=== PATIENT | male | born 1945 | race African-American/Black ===

== ENCOUNTER 2021-05-28 09:52 | Inpatient (IN) | payer MEDICARE, OTHER ==
[~2021-05-28] VITALS: Ht 188 cm; Wt 128.4 kg
[2021-05-28] MEDS ORDERED: HYDROCODONE/ACETAMINOPHEN 5/325MG TABLET PO ONE (10:30)
[2021-05-28 10:44] LABS: CHLORIDE 107 mEq/L (98-107)
[2021-05-28 10:45] LABS: MEAN CORPUSCULAR HEMOGLOBIN 15.2 pg (28.0-32.0); MEAN CORPUSCULAR VOLUME 58.5 fL (80.0-94.0); MEAN PLATELET VOLUME 8.5 fl (7.4-10.4); PLATELET 458 x1000/uL (130-400); RED BLOOD CELL COUNT 2.44 mill/uL (4.7-6.1); RED CELL DISTRIBUTION WIDTH 20.8 % (11.6-14.6)
[2021-05-28 10:48] LABS: HEMOGLOBIN. 3.7 g/dL (14.0-18.0)
[2021-05-28 10:49] LABS: HEMATOCRIT. 14.2 % (42.0-52.0)
[2021-05-28 10:59] LABS: ETHANOL BLOOD < 10 mg/dL
[2021-05-28 11:15] LABS: NUCLEATED RED BLOOD CELLS 1 /100 WBC
[2021-05-28 11:16] LABS: PLATELET ESTIMATE INCREASED
[2021-05-28 12:35] LABS: TOTAL IRON BINDING CAPACITY 369 ug/dL (250-450)
[2021-05-28 12:50] LABS: FOLIC ACID (FOLATE) SERUM >20 ng/mL ng/mL (>5.38)
[2021-05-28 12:54] LABS: INR 1.4; PROTHROMBIN TIME 14.3 sec (9.6-11.0)
[2021-05-28 12:58] LABS: PARTIAL THROMBOPLASTIN TIME 134.1 sec (23.4-31.0)
[2021-05-28 13:01] LABS: VITAMIN B12 SERUM 562 pg/mL (211-911)
[2021-05-28] MEDS ORDERED: LORAZEPAM 0.5MG TABLET PO PRN (15:15)
[2021-05-28] MEDS ORDERED: ACETAMINOPHEN 325MG TABLET PO PRN (15:15)
[2021-05-28] MEDS ORDERED: DOCUSATE SODIUM 100MG CAPSULE PO PRN (15:15)
[2021-05-28] MEDS ORDERED: CLONIDINE 0.1MG TABLET PO PRN (15:15)
[2021-05-28] MEDS ORDERED: IPRATROPIUM/ALBUTEROL 0.5-3(2.5)MG/3ML NEB HHN PRN (15:15)
[2021-05-28] MEDS ORDERED: ONDANSETRON HCL 4MG/2ML INJ IV PRN (15:15)
[2021-05-28] MEDS ORDERED: NALOXONE HCL 0.4MG/ML VIAL IV PRN (15:30)
[2021-05-28 16:12] LABS: CREATINE KINASE MB FRACTION 2.6 ng/mL (0.5-3.6)
[2021-05-28] MEDS: IRON SUCROSE COMPLEX 100 MG/5 ML ML IV SCH (17:52)
[2021-05-28 19:58] LABS: CLARITY URINE CLEAR (CLEAR); COLOR URINE YELLOW (YELLOW); KETONES URINE NEGATIVE (NEGATIVE); LEUKOCYTE ESTERASE URINE NEGATIVE (NEGATIVE); NITRITE URINE NEGATIVE (NEGATIVE); OCCULT BLOOD URINE NEGATIVE (NEGATIVE); PROTEIN URINE NEGATIVE (NEGATIVE)
[2021-05-28 20:00] VITALS: BP 95/59
[2021-05-28 20:21] LABS: *AMPHETAMINES SCREEN URINE NEGATIVE (NEGATIVE); *BARBITURATES SCREEN URINE NEGATIVE (NEGATIVE); *BENZODIAZEPINES SCREEN URINE NEGATIVE (NEGATIVE); *COCAINE SCREEN URINE NEGATIVE (NEGATIVE); METHADONE URINE SCREEN NEGATIVE (NEGATIVE)
[2021-05-28 20:22] LABS: CANNABINOID URINE SCREEN NEGATIVE (NEGATIVE); OPIATES URINE SCREEN PRESUMTIVE POSITIVE (NEGATIVE); PHENCYCLIDINE URINE SCREEN NEGATIVE (NEGATIVE)
[2021-05-28 22:00] VITALS: BP 116/68
[2021-05-28] MEDS: HYDROCODONE/ACETAMINOPHEN 5/325MG TABLET PO PRN (22:55)
[2021-05-29] VITALS (20 sets, daily range): BP systolic 100–130; BP diastolic 51–82
[2021-05-29] MEDS: HYDROCODONE/ACETAMINOPHEN 5/325MG TABLET PO PRN ×4 (03:25→23:54)
[2021-05-29 11:19] LABS: MEAN CORPUSCULAR HEMOGLOBIN 19.5 pg (28.0-32.0); MEAN CORPUSCULAR VOLUME 66.7 fL (80.0-94.0); MEAN PLATELET VOLUME 8.7 fl (7.4-10.4); PLATELET 376 x1000/uL (130-400); RED BLOOD CELL COUNT 2.69 mill/uL (4.7-6.1); RED CELL DISTRIBUTION WIDTH 31.3 % (11.6-14.6)
[2021-05-29 11:35] LABS: T4 FREE 1.04 ng/dL (0.76-1.46)
[2021-05-29 11:40] LABS: HEMOGLOBIN. 5.3 g/dL (14.0-18.0)
[2021-05-29 11:57] LABS: NUCLEATED RED BLOOD CELLS 5 /100 WBC
[2021-05-29 11:59] LABS: PLATELET ESTIMATE NORMAL
[2021-05-29] MEDS: IRON SUCROSE COMPLEX 100 MG/5 ML ML IV SCH (16:59)
[2021-05-29 22:12] LABS: HEMOGLOBIN 6.1 g/dL (14.0-18.0)
[2021-05-29 22:13] LABS: HEMATOCRIT 19.3 % (42.0-52.0)
[2021-05-29 22:16] LABS: CHLORIDE 106 mEq/L (98-107)
[2021-05-30] VITALS (10 sets, daily range): BP systolic 103–160; BP diastolic 56–91
[2021-05-30] MEDS: HYDROCODONE/ACETAMINOPHEN 5/325MG TABLET PO PRN ×4 (05:35→23:35)
[2021-05-30 06:37] LABS: BASOPHILS % 1.2 % (0.0-2.0); EOSINOPHILS % 2.6 % (0.0-5.0); HEMATOCRIT. 23.3 % (42.0-52.0); HEMOGLOBIN. 7.2 g/dL (14.0-18.0); LYMPHOCYTES % 15.3 % (20.0-50.0); MEAN CORPUSCULAR HEMOGLOBIN 22.3 pg (28.0-32.0); MEAN CORPUSCULAR VOLUME 71.7 fL (80.0-94.0); MEAN PLATELET VOLUME 8.8 fl (7.4-10.4); MONOCYTES % 4.8 % (2.0-8.0); NEUTROPHILS % 76.1 % (40.0-76.0); PLATELET 356 x1000/uL (130-400); RED BLOOD CELL COUNT 3.25 mill/uL (4.7-6.1); RED CELL DISTRIBUTION WIDTH 33.6 % (11.6-14.6)
[2021-05-30 07:02] LABS: CHLORIDE 106 mEq/L (98-107)
[2021-05-30 07:12] LABS: CREATINE KINASE 101 IU/L (39-308)
[2021-05-30 07:13] LABS: CREATINE KINASE MB FRACTION 2.3 ng/mL (0.5-3.6)
[2021-05-30] MEDS ORDERED: MORPHINE SULFATE 2 MG/ML CPJ (NOT FOR IM USE) IV SCH (13:45)
[2021-05-30 17:41] LABS: CREATINE KINASE MB FRACTION 2.9 ng/mL (0.5-3.6)
[2021-05-31] VITALS (7 sets, daily range): BP systolic 105–137; BP diastolic 62–98
[2021-05-31 06:26] LABS: CHLORIDE 108 mEq/L (98-107)
[2021-05-31] MEDS: HYDROCODONE/ACETAMINOPHEN 5/325MG TABLET PO PRN ×3 (06:30→22:16)
[2021-05-31 06:40] LABS: BASOPHILS % 1.1 % (0.0-2.0); EOSINOPHILS % 2.8 % (0.0-5.0); HEMATOCRIT. 23.8 % (42.0-52.0); HEMOGLOBIN. 7.2 g/dL (14.0-18.0); LYMPHOCYTES % 14.4 % (20.0-50.0); MEAN CORPUSCULAR HEMOGLOBIN 22.1 pg (28.0-32.0); MEAN CORPUSCULAR VOLUME 72.7 fL (80.0-94.0); MEAN PLATELET VOLUME 9.1 fl (7.4-10.4); MONOCYTES % 7.8 % (2.0-8.0); NEUTROPHILS % 73.9 % (40.0-76.0); PLATELET 375 x1000/uL (130-400); RED BLOOD CELL COUNT 3.27 mill/uL (4.7-6.1); RED CELL DISTRIBUTION WIDTH 33.8 % (11.6-14.6)
[2021-05-31] MEDS ORDERED: MORPHINE SULFATE 2 MG/ML CPJ (NOT FOR IM USE) IV NR (15:45)
[2021-05-31] MEDS ORDERED: RIVA10TA MT (19:42)
[2021-06-01] VITALS: BP 115/77
[2021-06-01 04:00] VITALS: BP 114/80
[2021-06-01] MEDS: HYDROCODONE/ACETAMINOPHEN 5/325MG TABLET PO PRN ×2 (04:45→18:26)
[2021-06-01 06:15] LABS: HEMATOCRIT. 24.7 % (42.0-52.0); HEMOGLOBIN. 7.6 g/dL (14.0-18.0); MEAN CORPUSCULAR HEMOGLOBIN 23.2 pg (28.0-32.0); MEAN CORPUSCULAR VOLUME 75.2 fL (80.0-94.0); MEAN PLATELET VOLUME 8.8 fl (7.4-10.4); PLATELET 375 x1000/uL (130-400); RED BLOOD CELL COUNT 3.28 mill/uL (4.7-6.1); RED CELL DISTRIBUTION WIDTH 34.8 % (11.6-14.6)
[2021-06-01 06:24] LABS: CHLORIDE 109 mEq/L (98-107)
[2021-06-01 08:00] VITALS: BP 112/78
[2021-06-01 12:00] VITALS: BP 110/78
[2021-06-01 13:02] LABS: NUCLEATED RED BLOOD CELLS 5 /100 WBC; PLATELET ESTIMATE NORMAL
[2021-06-01 17:43] LABS: INR 1.1; PROTHROMBIN TIME 11.9 sec (9.6-11.0)
[2021-06-01 17:48] LABS: GAMMA GLUTAMYL TRANSPEPTIDASE 15 IU/L (11-50)
[2021-06-01 17:49] LABS: AMYLASE 30 IU/L (25-115)
[2021-06-01 17:52] LABS: TOTAL IRON BINDING CAPACITY 277 ug/dL (250-450)
[2021-06-01 17:55] LABS: CREATINE KINASE 84 IU/L (39-308)
[2021-06-01 18:11] LABS: HEMATOCRIT 25.9 % (42.0-52.0); HEMOGLOBIN 7.9 g/dL (14.0-18.0)
[2021-06-01 20:00] VITALS: BP 133/75
[2021-06-01] MEDS: PANTOPRAZOLE SODIUM 40 MG/VIAL IV SCH (21:53)
[2021-06-02] VITALS: BP 116/70
[2021-06-02 00:31] LABS: HEMATOCRIT 24.9 % (42.0-52.0); HEMOGLOBIN 7.8 g/dL (14.0-18.0)
[2021-06-02] MEDS: HYDROCODONE/ACETAMINOPHEN 5/325MG TABLET PO PRN (03:40)
[2021-06-02 04:00] VITALS: BP 133/67
[2021-06-02] MEDS ORDERED: NA PHOS,M-B/NA PHOS,DI-BA ENEMA 118ML PR NR (07:00)
[2021-06-02 08:00] VITALS: BP 123/66
[2021-06-02 09:22] LABS: HEMATOCRIT. 26.7 % (42.0-52.0); MEAN CORPUSCULAR HEMOGLOBIN 22.6 pg (28.0-32.0); MEAN CORPUSCULAR VOLUME 75.8 fL (80.0-94.0); MEAN PLATELET VOLUME 8.6 fl (7.4-10.4); PLATELET 405 x1000/uL (130-400); RED BLOOD CELL COUNT 3.52 mill/uL (4.7-6.1); RED CELL DISTRIBUTION WIDTH 37.1 % (11.6-14.6)
[2021-06-02 09:32] LABS: INR 1.1; PROTHROMBIN TIME 11.6 sec (9.6-11.0)
[2021-06-02] MEDS: PANTOPRAZOLE SODIUM 40 MG/VIAL IV SCH ×2 (09:39→20:15)
[2021-06-02 09:40] LABS: CHLORIDE 109 mEq/L (98-107)
[2021-06-02 12:00] VITALS: BP 118/66
[2021-06-02] MEDS ORDERED: PROPOFOL 200MG/20ML VIAL IV ONE (13:00)
[2021-06-02] MEDS ORDERED: MIDAZOLAM HCL 2 MG/2 ML VIAL ONE (13:00)
[2021-06-02] MEDS ORDERED: FENTANYL CITRATE/PF 50MCG/ML 2ML VIAL ONE (13:00)
[2021-06-02] MEDS ORDERED: ONDANSETRON HCL 4MG/2ML INJ ONE (13:01)
[2021-06-02] MEDS ORDERED: LIDOCAINE HCL 1% 20ML VIAL (Pyxis) INJ ONE (13:01)
[2021-06-02] MEDS ORDERED: DEXAMETHASONE 4MG/ML 1ML VIAL ONE (13:01)
[2021-06-02 13:55] LABS: NUCLEATED RED BLOOD CELLS 1 /100 WBC; PLATELET ESTIMATE SLIGHTLY INCREASED
[2021-06-02 16:00] VITALS: BP 113/77
[2021-06-02] MEDS: BISACODYL 5MG TABLET PO SCH ×3 (17:45→23:51)
[2021-06-02] MEDS: METOCLOPRAMIDE HCL 10MG/2ML VIAL IV SCH ×3 (17:45→23:51)
[2021-06-02] MEDS: SORBITOL 70% SOLN 30ML PO SCH ×2 (17:45→20:15)
[2021-06-02 20:00] VITALS: BP 114/64
[2021-06-02] MEDS: ACETAMINOPHEN 325MG TABLET PO PRN (23:52)
[2021-06-03] VITALS: BP 108/76
[2021-06-03] MEDS: SORBITOL 70% SOLN 30ML PO SCH ×2 (00:27→04:36)
[2021-06-03 04:00] VITALS: BP 105/70
[2021-06-03] MEDS: BISACODYL 5MG TABLET PO SCH (04:05)
[2021-06-03] MEDS: METOCLOPRAMIDE HCL 10MG/2ML VIAL IV SCH (04:05)
[2021-06-03 05:38] LABS: HEMATOCRIT. 26.7 % (42.0-52.0); HEMOGLOBIN. 7.9 g/dL (14.0-18.0); MEAN CORPUSCULAR HEMOGLOBIN 22.6 pg (28.0-32.0); MEAN CORPUSCULAR VOLUME 76.5 fL (80.0-94.0); MEAN PLATELET VOLUME 8.5 fl (7.4-10.4); PLATELET 425 x1000/uL (130-400); RED BLOOD CELL COUNT 3.49 mill/uL (4.7-6.1); RED CELL DISTRIBUTION WIDTH 36.4 % (11.6-14.6)
[2021-06-03 05:54] LABS: CHLORIDE 110 mEq/L (98-107)
[2021-06-03] MEDS: ACETAMINOPHEN 325MG TABLET PO PRN (06:30)
[2021-06-03] MEDS ORDERED: NA PHOS,M-B/NA PHOS,DI-BA ENEMA 118ML PR NR (07:00)
[2021-06-03 07:05] LABS: INR 1.1; PROTHROMBIN TIME 11.4 sec (9.6-11.0)
[2021-06-03 07:33] LABS: PARTIAL THROMBOPLASTIN TIME 94.6 sec (23.4-31.0)
[2021-06-03 08:00] VITALS: BP 115/72
[2021-06-03] MEDS: PANTOPRAZOLE SODIUM 40 MG/VIAL IV SCH ×2 (08:40→20:30)
[2021-06-03 10:13] LABS: NUCLEATED RED BLOOD CELLS 1 /100 WBC; PLATELET ESTIMATE SLIGHTLY INCREASED
[2021-06-03] MEDS ORDERED: PROPOFOL 200MG/20ML VIAL IV ONE (10:44)
[2021-06-03] MEDS ORDERED: FENTANYL CITRATE/PF 50MCG/ML 2ML VIAL ONE (10:45)
[2021-06-03] MEDS ORDERED: MIDAZOLAM HCL 2 MG/2 ML VIAL ONE (10:45)
[2021-06-03] MEDS ORDERED: LIDOCAINE HCL 1% 20ML VIAL (Pyxis) INJ ONE (10:53)
[2021-06-03] MEDS ORDERED: DEXAMETHASONE 4MG/ML 1ML VIAL ONE (10:53)
[2021-06-03] MEDS ORDERED: ONDANSETRON HCL 4MG/2ML INJ ONE (10:53)
[2021-06-03 12:00] VITALS: BP 100/56
[2021-06-03] MEDS ORDERED: IRON SUCROSE COMPLEX 100 MG/5 ML ML IV SCH (12:00)
[2021-06-03] MEDS ORDERED: BARIUM SULFATE(VOLUMEN) 450 ML ORAL.SUSP ONE (15:21)
[2021-06-03 16:00] VITALS: BP 106/62
[2021-06-03 20:00] VITALS: BP 131/46
[2021-06-03] MEDS ORDERED: IOHEXOL-350 100 ML BOTTLE ONE (21:35)
[2021-06-04] VITALS: BP 93/64
[2021-06-04] MEDS: ACETAMINOPHEN 325MG TABLET PO PRN ×2 (03:05→17:06)
[2021-06-04 04:00] VITALS: BP 112/62
[2021-06-04 07:08] LABS: HEMATOCRIT. 24.3 % (42.0-52.0); HEMOGLOBIN. 7.4 g/dL (14.0-18.0); MEAN CORPUSCULAR VOLUME 75.7 fL (80.0-94.0); MEAN PLATELET VOLUME 8.6 fl (7.4-10.4); PLATELET 400 x1000/uL (130-400); RED BLOOD CELL COUNT 3.22 mill/uL (4.7-6.1)
[2021-06-04 07:56] LABS: CHLORIDE 107 mEq/L (98-107)
[2021-06-04 08:00] VITALS: BP 110/60
[2021-06-04] MEDS: PANTOPRAZOLE SODIUM 40 MG/VIAL IV SCH ×2 (09:21→22:18)
[2021-06-04 11:15] LABS: NUCLEATED RED BLOOD CELLS 1 /100 WBC; PLATELET ESTIMATE NORMAL
[2021-06-04] MEDS ORDERED: ENOXAPARIN 120MG/0.8ML SYR SUBCUT SCH (11:30)
[2021-06-04] MEDS: HYDROCODONE/ACETAMINOPHEN 5/325MG TABLET PO PRN ×2 (11:57→18:03)
[2021-06-04 12:00] VITALS: BP 115/54
[2021-06-04 16:00] VITALS: BP 123/59
[2021-06-04] MEDS ORDERED: NALOXONE HCL 0.4MG/ML VIAL IV PRN (17:45)
[2021-06-04] MEDS: METHYLPREDNISOLONE SOD SUCC 40 MG/ML VIAL IV SCH (18:02)
[2021-06-04 20:00] VITALS: BP 102/59
[2021-06-05] VITALS (9 sets, daily range): BP systolic 122–145; BP diastolic 55–81
[2021-06-05] MEDS: HYDROCODONE/ACETAMINOPHEN 5/325MG TABLET PO PRN ×3 (00:35→20:45)
[2021-06-05] MEDS: FERROUS SULFATE 325MG TABLET PO SCH ×4 (00:36→17:25)
[2021-06-05] MEDS: METHYLPREDNISOLONE SOD SUCC 40 MG/ML VIAL IV SCH ×5 (00:36→23:11)
[2021-06-05] MEDS: ASCORBIC ACID 500 MG TABLET PO SCH ×3 (00:36→20:45)
[2021-06-05] MEDS: PANTOPRAZOLE SODIUM 40 MG/VIAL IV SCH ×2 (09:37→20:45)
[2021-06-05] MEDS: LACTULOSE 20G/30ML UDC PO SCH (21:15)
[2021-06-06] VITALS: BP 144/83
[2021-06-06] MEDS: HYDROCODONE/ACETAMINOPHEN 5/325MG TABLET PO PRN ×3 (03:33→21:44)
[2021-06-06] MEDS: ACETAMINOPHEN 325MG TABLET PO PRN ×2 (03:38→20:29)
[2021-06-06 04:00] VITALS: BP 140/80
[2021-06-06] MEDS: METHYLPREDNISOLONE SOD SUCC 40 MG/ML VIAL IV SCH ×4 (05:06→23:38)
[2021-06-06 07:18] LABS: CHLORIDE 109 mEq/L (98-107)
[2021-06-06 08:22] LABS: HEMATOCRIT. 27.9 % (42.0-52.0); HEMOGLOBIN. 8.5 g/dL (14.0-18.0); MEAN CORPUSCULAR HEMOGLOBIN 24.1 pg (28.0-32.0); MEAN PLATELET VOLUME 8.8 fl (7.4-10.4); PLATELET 414 x1000/uL (130-400); RED BLOOD CELL COUNT 3.53 mill/uL (4.7-6.1); RED CELL DISTRIBUTION WIDTH 34.8 % (11.6-14.6)
[2021-06-06] MEDS: FERROUS SULFATE 325MG TABLET PO SCH ×3 (08:46→17:19)
[2021-06-06] MEDS: PANTOPRAZOLE SODIUM 40 MG/VIAL IV SCH ×2 (08:46→20:28)
[2021-06-06] MEDS: ASCORBIC ACID 500 MG TABLET PO SCH ×2 (08:46→20:28)
[2021-06-06] MEDS ORDERED: SODIUM POLYSTYRENE SULFONATE 15 G/60 ML BOT PO NR (10:30)
[2021-06-06 16:00] VITALS: BP 130/77
[2021-06-06 17:26] LABS: PLATELET ESTIMATE SLIGHTLY INCREASED
[2021-06-06 20:00] VITALS: BP 139/70
[2021-06-06] MEDS: LACTULOSE 20G/30ML UDC PO SCH (20:28)
[2021-06-07] MEDS: HYDROCODONE/ACETAMINOPHEN 5/325MG TABLET PO PRN ×3 (03:50→18:56)
[2021-06-07 04:00] VITALS: BP 133/75
[2021-06-07 05:23] LABS: CHLORIDE 108 mEq/L (98-107)
[2021-06-07] MEDS: METHYLPREDNISOLONE SOD SUCC 40 MG/ML VIAL IV SCH ×3 (05:34→18:53)
[2021-06-07 06:42] LABS: HEMATOCRIT. 25.8 % (42.0-52.0); HEMOGLOBIN. 7.6 g/dL (14.0-18.0); MEAN CORPUSCULAR HEMOGLOBIN 24.1 pg (28.0-32.0); MEAN CORPUSCULAR VOLUME 81.9 fL (80.0-94.0); MEAN PLATELET VOLUME 8.9 fl (7.4-10.4); PLATELET 426 x1000/uL (130-400); RED BLOOD CELL COUNT 3.15 mill/uL (4.7-6.1); RED CELL DISTRIBUTION WIDTH 35.3 % (11.6-14.6)
[2021-06-07 08:00] VITALS: BP 119/74
[2021-06-07] MEDS: PANTOPRAZOLE SODIUM 40 MG/VIAL IV SCH ×2 (08:47→22:11)
[2021-06-07] MEDS: ASCORBIC ACID 500 MG TABLET PO SCH ×2 (08:47→22:11)
[2021-06-07] MEDS: FERROUS SULFATE 325MG TABLET PO SCH ×3 (08:47→18:53)
[2021-06-07] MEDS ORDERED: ALPRAZOLAM 0.25 MG TABLET PO NR (11:30)
[2021-06-07 12:00] VITALS: BP 119/82
[2021-06-07 16:00] VITALS: BP 122/80
[2021-06-07] MEDS: MORPHINE SULFATE 2 MG/ML CPJ (NOT FOR IM USE) IV PRN (16:27)
[2021-06-07 17:32] LABS: PLATELET ESTIMATE SLIGHTLY INCREASED
[2021-06-07 20:00] VITALS: BP 101/63
[2021-06-07] MEDS: LACTULOSE 20G/30ML UDC PO SCH (21:00)
[2021-06-08] VITALS (14 sets, daily range): BP systolic 116–145; BP diastolic 53–84
[2021-06-08] MEDS: METHYLPREDNISOLONE SOD SUCC 40 MG/ML VIAL IV SCH ×5 (00:10→23:49)
[2021-06-08] MEDS: MORPHINE SULFATE 2 MG/ML CPJ (NOT FOR IM USE) IV PRN ×2 (00:13→17:39)
[2021-06-08] MEDS: HYDROCODONE/ACETAMINOPHEN 5/325MG TABLET PO PRN (05:14)
[2021-06-08 05:51] LABS: CHLORIDE 108 mEq/L (98-107)
[2021-06-08 06:27] LABS: HEMATOCRIT. 21.7 % (42.0-52.0); MEAN PLATELET VOLUME 9.1 fl (7.4-10.4); PLATELET 394 x1000/uL (130-400); RED BLOOD CELL COUNT 2.61 mill/uL (4.7-6.1); RED CELL DISTRIBUTION WIDTH 35.3 % (11.6-14.6)
[2021-06-08 06:43] LABS: HEMOGLOBIN. 6.2 g/dL (14.0-18.0)
[2021-06-08] MEDS ORDERED: MORPHINE SULFATE 2 MG/ML CPJ (NOT FOR IM USE) IV SCH (06:45)
[2021-06-08] MEDS: ASCORBIC ACID 500 MG TABLET PO SCH ×2 (08:31→22:05)
[2021-06-08] MEDS: PANTOPRAZOLE SODIUM 40 MG/VIAL IV SCH ×2 (08:31→22:06)
[2021-06-08] MEDS: FERROUS SULFATE 325MG TABLET PO SCH ×3 (08:31→17:39)
[2021-06-08] MEDS: DOCUSATE SODIUM 100MG CAPSULE PO SCH ×2 (10:30→17:39)
[2021-06-08 17:58] LABS: NUCLEATED RED BLOOD CELLS 2 /100 WBC; PLATELET ESTIMATE NORMAL
[2021-06-08 18:43] LABS: INR 1.1; PROTHROMBIN TIME 11.5 sec (9.6-11.0)
[2021-06-08 19:03] LABS: HEMOGLOBIN 6.4 g/dL (14.0-18.0)
[2021-06-08 19:04] LABS: HEMATOCRIT 21.2 % (42.0-52.0)
[2021-06-08] MEDS: LACTULOSE 20G/30ML UDC PO SCH (21:00)
[2021-06-09] VITALS (11 sets, daily range): BP systolic 119–147; BP diastolic 53–93
[2021-06-09] MEDS: MORPHINE SULFATE 2 MG/ML CPJ (NOT FOR IM USE) IV PRN ×3 (01:41→21:43)
[2021-06-09 05:14] LABS: MEAN CORPUSCULAR HEMOGLOBIN 25.7 pg (28.0-32.0); MEAN PLATELET VOLUME 9.1 fl (7.4-10.4); PLATELET 390 x1000/uL (130-400); RED BLOOD CELL COUNT 2.65 mill/uL (4.7-6.1); RED CELL DISTRIBUTION WIDTH 28.3 % (11.6-14.6)
[2021-06-09 05:20] LABS: CHLORIDE 106 mEq/L (98-107)
[2021-06-09] MEDS: METHYLPREDNISOLONE SOD SUCC 40 MG/ML VIAL IV SCH ×3 (06:31→18:48)
[2021-06-09 06:39] LABS: HEMOGLOBIN. 6.8 g/dL (14.0-18.0)
[2021-06-09 06:40] LABS: HEMATOCRIT. 22.3 % (42.0-52.0)
[2021-06-09] MEDS ORDERED: NALOXONE HCL 0.4 MG/ML 1ML VIAL IV PRN (08:00)
[2021-06-09] MEDS: PANTOPRAZOLE SODIUM 40 MG/VIAL IV SCH ×2 (08:35→21:44)
[2021-06-09] MEDS: FERROUS SULFATE 325MG TABLET PO SCH ×3 (08:36→18:49)
[2021-06-09] MEDS: DOCUSATE SODIUM 100MG CAPSULE PO SCH ×2 (08:36→18:49)
[2021-06-09] MEDS: ASCORBIC ACID 500 MG TABLET PO SCH ×2 (08:36→21:44)
[2021-06-09] MEDS: HYDROCODONE/ACETAMINOPHEN 10/325MG TABLET PO PRN (10:42)
[2021-06-09] MEDS ORDERED: METHYLPREDNISOLONE SOD SUCC 40 MG/ML VIAL ONE (12:57)
[2021-06-09 20:15] LABS: HEMATOCRIT 22.8 % (42.0-52.0); HEMOGLOBIN 7.2 g/dL (14.0-18.0)
[2021-06-09 20:36] LABS: PLATELET ESTIMATE NORMAL
[2021-06-09] MEDS: LACTULOSE 20G/30ML UDC PO SCH (21:44)
[2021-06-09] MEDS ORDERED: FUROSEMIDE 20MG/2ML VIAL IVP SCH (23:15)
[2021-06-10] VITALS (14 sets, daily range): BP systolic 108–138; BP diastolic 63–86
[2021-06-10] MEDS: HYDROCODONE/ACETAMINOPHEN 10/325MG TABLET PO PRN ×2 (00:45→16:28)
[2021-06-10] MEDS: METHYLPREDNISOLONE SOD SUCC 40 MG/ML VIAL IV SCH ×4 (00:54→17:52)
[2021-06-10 06:16] LABS: CHLORIDE 106 mEq/L (98-107)
[2021-06-10 06:43] LABS: HEMATOCRIT. 22.1 % (42.0-52.0); MEAN CORPUSCULAR HEMOGLOBIN 25.8 pg (28.0-32.0); MEAN CORPUSCULAR VOLUME 85.2 fL (80.0-94.0); MEAN PLATELET VOLUME 9.4 fl (7.4-10.4); PLATELET 289 x1000/uL (130-400); RED BLOOD CELL COUNT 2.59 mill/uL (4.7-6.1)
[2021-06-10 06:45] LABS: INR 1.2; PROTHROMBIN TIME 12.4 sec (9.6-11.0)
[2021-06-10 07:29] LABS: PARTIAL THROMBOPLASTIN TIME 99.5 sec (23.4-31.0)
[2021-06-10] MEDS: FERROUS SULFATE 325MG TABLET PO SCH ×3 (08:07→17:58)
[2021-06-10] MEDS: PANTOPRAZOLE SODIUM 40 MG/VIAL IV SCH ×2 (08:07→21:14)
[2021-06-10] MEDS: DOCUSATE SODIUM 100MG CAPSULE PO SCH ×2 (08:07→17:52)
[2021-06-10] MEDS: ASCORBIC ACID 500 MG TABLET PO SCH ×2 (08:07→21:14)
[2021-06-10 08:09] LABS: HEMOGLOBIN. 6.7 g/dL (14.0-18.0)
[2021-06-10] MEDS: MORPHINE SULFATE 2 MG/ML CPJ (NOT FOR IM USE) IV PRN (08:12)
[2021-06-10 09:06] LABS: ANTI-DNA DOUBLE STRANDED QUANT < 1 IU/mL (0-9)
[2021-06-10] MEDS: PREGABALIN 25MG CAPSULE PO SCH ×2 (12:09→21:14)
[2021-06-10 12:24] LABS: NUCLEATED RED BLOOD CELLS 4 /100 WBC; PLATELET ESTIMATE NORMAL
[2021-06-10] MEDS: LACTULOSE 20G/30ML UDC PO SCH (21:14)
[2021-06-11] VITALS (10 sets, daily range): BP systolic 135–148; BP diastolic 60–98
[2021-06-11] MEDS: METHYLPREDNISOLONE SOD SUCC 40 MG/ML VIAL IV SCH ×5 (00:29→23:52)
[2021-06-11] MEDS: MORPHINE SULFATE 2 MG/ML CPJ (NOT FOR IM USE) IV PRN ×4 (01:05→23:56)
[2021-06-11 05:45] LABS: CHLORIDE 106 mEq/L (98-107)
[2021-06-11 06:05] LABS: HEMATOCRIT 23.7 % (42.0-52.0); HEMOGLOBIN 7.4 g/dL (14.0-18.0)
[2021-06-11] MEDS: DOCUSATE SODIUM 100MG CAPSULE PO SCH ×2 (09:24→18:25)
[2021-06-11] MEDS: FERROUS SULFATE 325MG TABLET PO SCH ×3 (09:24→18:25)
[2021-06-11] MEDS: ASCORBIC ACID 500 MG TABLET PO SCH ×2 (09:25→20:47)
[2021-06-11] MEDS: PREGABALIN 25MG CAPSULE PO SCH ×2 (09:25→20:47)
[2021-06-11] MEDS: PANTOPRAZOLE SODIUM 40 MG/VIAL IV SCH ×2 (09:25→20:48)
[2021-06-11] MEDS ORDERED: IOHEXOL-300 100 ML BOTTLE ONE (11:12)
[2021-06-11] MEDS ORDERED: BISACODYL 5MG TABLET PO PRN (12:15)
[2021-06-11 13:07] LABS: ACTIN (SMOOTH MUSCLE) ANTIBODY 7 Units (0-19); ANTI-CARDIOLIPIN AB IGG < 9 GPL U/mL (0-14); ANTI-CARDIOLIPIN AB IGM < 9 MPL U/mL (0-12); ANTI-MYELOPEROXIDASE AB < 9.0 U/mL (0.0-9.0); ANTI-PROTEINASE 3 ABS < 3.5 U/mL (0.0-3.5); ATYPICAL P-ANCA <1:20 titer (Neg:<1:20); CYTOPLASMIC C-ANCA <1:20 titer (Neg:<1:20); PERINUCLEAR P-ANCA <1:20 titer (Neg:<1:20)
[2021-06-11] MEDS ORDERED: MAGNESIUM CITRATE 300ML SOLUTION PO NR (13:30)
[2021-06-11 14:10] LABS: ALDOLASE 6.3 U/L (3.3-10.3); ANGIOTENSION CONVERTING ENZYME 30 U/L (14-82)
[2021-06-11 16:47] LABS: HEMATOCRIT 21.4 % (42.0-52.0)
[2021-06-11 16:58] LABS: HEMOGLOBIN 6.4 g/dL (14.0-18.0)
[2021-06-11] MEDS: LACTULOSE 20G/30ML UDC PO SCH (20:47)
[2021-06-12] VITALS (27 sets, daily range): BP systolic 121–154; BP diastolic 45–78
[2021-06-12 01:03] LABS: HEMOGLOBIN 6.2 g/dL (14.0-18.0)
[2021-06-12 01:04] LABS: HEMATOCRIT 20.9 % (42.0-52.0)
[2021-06-12] MEDS: METHYLPREDNISOLONE SOD SUCC 40 MG/ML VIAL IV SCH ×4 (05:49→23:22)
[2021-06-12] MEDS: DOCUSATE SODIUM 100MG CAPSULE PO SCH ×2 (08:57→17:01)
[2021-06-12] MEDS: PANTOPRAZOLE SODIUM 40 MG/VIAL IV SCH ×2 (08:57→21:00)
[2021-06-12] MEDS: PREGABALIN 25MG CAPSULE PO SCH ×2 (08:57→20:55)
[2021-06-12] MEDS: ASCORBIC ACID 500 MG TABLET PO SCH ×2 (08:57→20:55)
[2021-06-12] MEDS: FERROUS SULFATE 325MG TABLET PO SCH ×3 (08:59→17:01)
[2021-06-12] MEDS: MORPHINE SULFATE 2 MG/ML CPJ (NOT FOR IM USE) IV PRN ×2 (09:00→21:08)
[2021-06-12 09:09] LABS: IMMUNOGLOBULIN A 162 mg/dL (61-437); IMMUNOGLOBULIN G 910 mg/dL (603-1613); IMMUNOGLOBULIN M 32 mg/dL (15-143)
[2021-06-12 19:59] LABS: HEMATOCRIT 22.6 % (42.0-52.0); HEMOGLOBIN 7.1 g/dL (14.0-18.0); MEAN CORPUSCULAR HEMOGLOBIN 27.7 pg (28.0-32.0); MEAN CORPUSCULAR VOLUME 87.7 fL (80.0-94.0); PLATELET 266 x1000/uL (130-400); RED BLOOD CELL COUNT 2.58 mill/uL (4.7-6.1); RED CELL DISTRIBUTION WIDTH 16.5 % (11.6-14.6)
[2021-06-12 20:09] LABS: CHLORIDE 107 mEq/L (98-107)
[2021-06-12 20:17] LABS: INR 1.1; PROTHROMBIN TIME 11.8 sec (9.6-11.0)
[2021-06-12] MEDS: LACTULOSE 20G/30ML UDC PO SCH (20:54)
[2021-06-13] VITALS (17 sets, daily range): BP systolic 116–160; BP diastolic 32–87
[2021-06-13] MEDS: MORPHINE SULFATE 2 MG/ML CPJ (NOT FOR IM USE) IV PRN ×3 (01:14→23:17)
[2021-06-13] MEDS: METHYLPREDNISOLONE SOD SUCC 40 MG/ML VIAL IV SCH ×4 (05:12→23:14)
[2021-06-13 08:10] LABS: HEMOGLOBIN 7.1 g/dL (14.0-18.0)
[2021-06-13 08:13] LABS: CHLORIDE 107 mEq/L (98-107)
[2021-06-13] MEDS: ASCORBIC ACID 500 MG TABLET PO SCH ×2 (08:27→20:36)
[2021-06-13] MEDS: PREGABALIN 25MG CAPSULE PO SCH ×2 (08:27→20:37)
[2021-06-13] MEDS: PANTOPRAZOLE SODIUM 40 MG/VIAL IV SCH ×2 (08:28→20:37)
[2021-06-13] MEDS: DOCUSATE SODIUM 100MG CAPSULE PO SCH ×2 (08:28→17:41)
[2021-06-13] MEDS: FERROUS SULFATE 325MG TABLET PO SCH ×3 (08:28→17:41)
[2021-06-13] MEDS: TRAMADOL 50MG TABLET PO PRN ×2 (11:48→17:42)
[2021-06-13] MEDS ORDERED: TRAMADOL 50MG TABLET PO PRN (18:45)
[2021-06-13 19:23] LABS: HEMATOCRIT 21.1 % (42.0-52.0); HEMOGLOBIN 6.6 g/dL (14.0-18.0)
[2021-06-13] MEDS: LACTULOSE 20G/30ML UDC PO SCH (20:37)
[2021-06-14] VITALS (12 sets, daily range): BP systolic 109–156; BP diastolic 56–68
[2021-06-14] MEDS: METHYLPREDNISOLONE SOD SUCC 40 MG/ML VIAL IV SCH ×3 (05:56→17:54)
[2021-06-14 06:13] LABS: HEMATOCRIT. 23.9 % (42.0-52.0); HEMOGLOBIN. 7.7 g/dL (14.0-18.0); MEAN CORPUSCULAR HEMOGLOBIN 28.8 pg (28.0-32.0); MEAN CORPUSCULAR VOLUME 89.7 fL (80.0-94.0); MEAN PLATELET VOLUME 9.3 fl (7.4-10.4); PLATELET 219 x1000/uL (130-400); RED BLOOD CELL COUNT 2.66 mill/uL (4.7-6.1); RED CELL DISTRIBUTION WIDTH 16.6 % (11.6-14.6)
[2021-06-14 06:59] LABS: CHLORIDE 106 mEq/L (98-107)
[2021-06-14] MEDS: FERROUS SULFATE 325MG TABLET PO SCH ×3 (10:31→17:54)
[2021-06-14] MEDS: PANTOPRAZOLE SODIUM 40 MG/VIAL IV SCH ×2 (10:31→22:53)
[2021-06-14] MEDS: ASCORBIC ACID 500 MG TABLET PO SCH ×2 (10:31→22:52)
[2021-06-14] MEDS: DOCUSATE SODIUM 100MG CAPSULE PO SCH ×2 (10:31→17:53)
[2021-06-14] MEDS: PREGABALIN 25MG CAPSULE PO SCH ×2 (10:32→22:52)
[2021-06-14] MEDS: MORPHINE SULFATE 2 MG/ML CPJ (NOT FOR IM USE) IV PRN ×3 (10:32→23:38)
[2021-06-14] MEDS: LACTULOSE 20G/30ML UDC PO SCH (22:52)
[2021-06-15] VITALS (12 sets, daily range): BP systolic 96–135; BP diastolic 54–79
[2021-06-15] MEDS: METHYLPREDNISOLONE SOD SUCC 40 MG/ML VIAL IV SCH ×4 (00:34→18:14)
[2021-06-15] MEDS: MORPHINE SULFATE 2 MG/ML CPJ (NOT FOR IM USE) IV PRN ×3 (03:47→18:26)
[2021-06-15 05:20] LABS: CHLORIDE 105 mEq/L (98-107)
[2021-06-15 06:27] LABS: HEMATOCRIT. 24.1 % (42.0-52.0); HEMOGLOBIN. 7.6 g/dL (14.0-18.0); MEAN CORPUSCULAR HEMOGLOBIN 28.4 pg (28.0-32.0); MEAN CORPUSCULAR VOLUME 90.2 fL (80.0-94.0); MEAN PLATELET VOLUME 9.2 fl (7.4-10.4); PLATELET 241 x1000/uL (130-400); RED BLOOD CELL COUNT 2.67 mill/uL (4.7-6.1); RED CELL DISTRIBUTION WIDTH 17.1 % (11.6-14.6)
[2021-06-15 09:11] LABS: DRVVT LA 34.9 sec (0.0-47.0); PTT-LA 102.3 sec (0.0-51.9)
[2021-06-15] MEDS: DOCUSATE SODIUM 100MG CAPSULE PO SCH ×2 (09:15→18:14)
[2021-06-15] MEDS: ASCORBIC ACID 500 MG TABLET PO SCH ×2 (09:15→21:30)
[2021-06-15] MEDS: PANTOPRAZOLE SODIUM 40 MG/VIAL IV SCH ×2 (09:15→21:29)
[2021-06-15] MEDS: PREGABALIN 25MG CAPSULE PO SCH ×2 (09:15→21:30)
[2021-06-15] MEDS: FERROUS SULFATE 325MG TABLET PO SCH ×3 (09:16→18:14)
[2021-06-15 15:07] LABS: NUCLEATED RED BLOOD CELLS 5 /100 WBC
[2021-06-15 15:08] LABS: PLATELET ESTIMATE NORMAL
[2021-06-15] MEDS: LACTULOSE 20G/30ML UDC PO SCH (21:30)
[2021-06-16] VITALS (12 sets, daily range): BP systolic 90–125; BP diastolic 52–76
[2021-06-16] MEDS: METHYLPREDNISOLONE SOD SUCC 40 MG/ML VIAL IV SCH ×4 (00:56→17:42)
[2021-06-16] MEDS: MORPHINE SULFATE 2 MG/ML CPJ (NOT FOR IM USE) IV PRN ×2 (02:20→15:50)
[2021-06-16 05:29] LABS: CHLORIDE 106 mEq/L (98-107)
[2021-06-16 06:09] LABS: HEXAGONAL PHASE PHOSPHOLIPID 12 sec (0-11); LUPUS ANTICOAG INTERPRETATION Comment: (.)
[2021-06-16 07:17] LABS: PLATELET ESTIMATE NORMAL
[2021-06-16] MEDS: FERROUS SULFATE 325MG TABLET PO SCH ×3 (08:20→17:43)
[2021-06-16] MEDS: ASCORBIC ACID 500 MG TABLET PO SCH ×2 (08:20→20:40)
[2021-06-16] MEDS: PANTOPRAZOLE SODIUM 40 MG/VIAL IV SCH ×2 (08:20→20:40)
[2021-06-16] MEDS: DOCUSATE SODIUM 100MG CAPSULE PO SCH ×2 (08:21→17:00)
[2021-06-16] MEDS: PREGABALIN 25MG CAPSULE PO SCH ×2 (08:21→20:40)
[2021-06-16] MEDS ORDERED: NA PHOS,M-B/NA PHOS,DI-BA ENEMA 118ML PR SCH (13:45)
[2021-06-16 14:17] LABS: HEMATOCRIT. 23.5 % (42.0-52.0); HEMOGLOBIN. 7.1 g/dL (14.0-18.0); MEAN CORPUSCULAR HEMOGLOBIN 28.3 pg (28.0-32.0); MEAN PLATELET VOLUME 9.9 fl (7.4-10.4); PLATELET 269 x1000/uL (130-400); RED BLOOD CELL COUNT 2.53 mill/uL (4.7-6.1); RED CELL DISTRIBUTION WIDTH 18.7 % (11.6-14.6)
[2021-06-16 17:03] LABS: NUCLEATED RED BLOOD CELLS 1 /100 WBC; PLATELET ESTIMATE NORMAL
[2021-06-16] MEDS: LACTULOSE 20G/30ML UDC PO SCH (20:40)
[2021-06-17] VITALS (55 sets, daily range): BP systolic 0–174; BP diastolic 0–88
[2021-06-17] MEDS: METHYLPREDNISOLONE SOD SUCC 40 MG/ML VIAL IV SCH ×5 (00:13→23:14)
[2021-06-17] MEDS: MORPHINE SULFATE 2 MG/ML CPJ (NOT FOR IM USE) IV PRN (01:08)
[2021-06-17] MEDS: FERROUS SULFATE 325MG TABLET PO SCH ×3 (08:00→17:00)
[2021-06-17] MEDS: ASCORBIC ACID 500 MG TABLET PO SCH ×2 (09:00→21:16)
[2021-06-17] MEDS: PANTOPRAZOLE SODIUM 40 MG/VIAL IV SCH ×2 (09:00→21:16)
[2021-06-17] MEDS: DOCUSATE SODIUM 100MG CAPSULE PO SCH ×2 (09:00→17:00)
[2021-06-17] MEDS ORDERED: DOPAMINE 400MG/250ML PREMIX 250 ML IV ONE (09:40)
[2021-06-17] MEDS ORDERED: NOREPINEPHRINE 8MG/250ML PMX 250 ML IV PRN (09:45)
[2021-06-17] MEDS ORDERED: FENTANYL CITRATE/PF 2,500 MCG in SODIUM CHLORIDE 0.9% 200 ML IV PRN (09:45)
[2021-06-17] MEDS ORDERED: MIDAZOLAM HCL 100 MG in SODIUM CHLORIDE 0.9% 80 ML IV PRN (09:45)
[2021-06-17] MEDS ORDERED: NOREPINEPHRINE 8 MG in DEXTROSE 5% WATER 250 ML IV PRN (09:45)
[2021-06-17] MEDS ORDERED: LIDOCAINE HCL 1% 20ML VIAL (Pyxis) INJ ONE (10:40)
[2021-06-17 10:49] LABS: BG BASE EXCESS -23.8 mmol/L (-2.0-2.0); BG CARBOXYHEMOGLOBIN 0.6 % (0.5-1.5); BG DEOXYHEMOGLOBIN 0.3 % (0.0-5.0); BG FRACTION INSPIRED OXYGEN 100; BG HCO3 ACT 6.3 mmol/L (22.0-26.0); BG METHEMOGLOBIN 0.5 % (0.0-1.5); BG OXYGEN SATURATION 99.7 % (92.0-98.5); BG OXYHEMOGLOBIN 98.6 % (94.0-97.0); BG PCO2 29.3 mmHg (35.0-45.0); BG PH 6.952 (7.350-7.450); BG PO2 459.8 mmHg (75.0-100.0); BG SAMPLE SITE LEFT BRACHIAL; BG TOTAL HEMOGLOBIN 6.8 g/dL (12.0-18.0); BG TOTAL RESPIRATORY RATE 21 b/min; BG VENT MODE VENT - AC
[2021-06-17] MEDS: PREGABALIN 50 MG CAPSULE PO SCH ×2 (11:00→21:16)
[2021-06-17] MEDS ORDERED: SODIUM BICARBONATE 8.4% 1 MEQ/ML 50ML SYR IV NR ×3 (11:11→21:30)
[2021-06-17] MEDS: NOREPINEPHRINE 32 MG in DEXT 5% WATER 218 ML IV PRN ×2 (11:25→21:07)
[2021-06-17 12:41] LABS: MEAN CORPUSCULAR HEMOGLOBIN 27.7 pg (28.0-32.0); MEAN CORPUSCULAR VOLUME 103.2 fL (80.0-94.0); MEAN PLATELET VOLUME 9.7 fl (7.4-10.4); PLATELET 191 x1000/uL (130-400); RED BLOOD CELL COUNT 1.86 mill/uL (4.7-6.1); RED CELL DISTRIBUTION WIDTH 19.3 % (11.6-14.6)
[2021-06-17] MEDS ORDERED: PHENYLEPHRINE 100 MG in DEXT 5% WATER 240 ML IV PRN (12:45)
[2021-06-17] MEDS ORDERED: IPRATROPIUM/ALBUTEROL 0.5-3(2.5)MG/3ML NEB HHN PRN (12:45)
[2021-06-17] MEDS: SODIUM BICARBONATE 150 MEQ in DEXTROSE 5% WATER 1000 ML IV SCH (12:52)
[2021-06-17] MEDS ORDERED: SODIUM POLYSTYRENE SULFONATE 15 G/60 ML BOT PO NR ×2 (12:52→21:30)
[2021-06-17 12:58] LABS: HEMOGLOBIN. 5.2 g/dL (14.0-18.0)
[2021-06-17 12:59] LABS: HEMATOCRIT. 19.2 % (42.0-52.0)
[2021-06-17] MEDS: PHENYLEPHRINE 100 MG in DEXT 5% WATER 240 ML IV PRN ×3 (13:50→22:27)
[2021-06-17] MEDS ORDERED: CALCIUM CHLORIDE 1,000 MG in DEXT 5% WATER 90 ML IV ONE (14:30)
[2021-06-17] MEDS ORDERED: SODIUM BICARBONATE 8.4% 1 MEQ/ML 50ML SYR IV ONE (14:30)
[2021-06-17] MEDS ORDERED: INSULIN REGULAR (HUMULIN R) 300UNITS/3ML VIAL IV ONE (14:30)
[2021-06-17] MEDS ORDERED: DEXTROSE 50% WATER 50ML SYRINGE IV ONE (14:30)
[2021-06-17] MEDS ORDERED: SODIUM CHLORIDE 0.9% 1,000 ML IV NR (14:45)
[2021-06-17] MEDS ORDERED: HYDROCORTISONE SOD SUCCINATE 100 MG/2 ML VIAL IV SCH ×2 (15:00→22:00)
[2021-06-17] MEDS: VASOPRESSIN 20 UNIT in SODIUM CHLORIDE 0.9% 99 ML IV PRN ×2 (15:34→22:27)
[2021-06-17 15:54] LABS: BG BASE EXCESS -19.1 mmol/L (-2.0-2.0); BG CARBOXYHEMOGLOBIN 0.4 % (0.5-1.5); BG FRACTION INSPIRED OXYGEN 100; BG METHEMOGLOBIN 1.4 % (0.0-1.5); BG OXYHEMOGLOBIN 97.2 % (94.0-97.0); BG PCO2 23.9 mmHg (35.0-45.0); BG PH 7.144 (7.350-7.450); BG PO2 371.5 mmHg (75.0-100.0); BG SAMPLE SITE LEFT RADIAL; BG TOTAL HEMOGLOBIN 4.7 g/dL (12.0-18.0); BG TOTAL RESPIRATORY RATE 30 b/min; BG VENT MODE VENT - AC
[2021-06-17 16:34] LABS: NUCLEATED RED BLOOD CELLS 26 /100 WBC; PLATELET ESTIMATE NORMAL
[2021-06-17] MEDS: DOPAMINE 400MG/250ML PREMIX 250 ML IV PRN ×2 (18:49→22:07)
[2021-06-17] MEDS: IPRATROPIUM/ALBUTEROL 0.5-3(2.5)MG/3ML NEB HHN SCH (20:41)
[2021-06-17] MEDS: LACTULOSE 20G/30ML UDC PO SCH (21:16)
[2021-06-17] MEDS ORDERED: INSULIN REGULAR (HUMULIN R) 300UNITS/3ML VIAL IV NR (21:30)
[2021-06-17] MEDS ORDERED: DEXTROSE 50% WATER 50ML SYRINGE IV NR (21:30)
[2021-06-17] MEDS ORDERED: ALBUTEROL (0.083%) 2.5MG/3ML NEB HHN NR (21:30)
[2021-06-17] MEDS: EPINEPHRINE 10 MG in SODIUM CHLORIDE 0.9% 240 ML IV PRN (22:07)
[2021-06-17] MEDS ORDERED: SODIUM BICARBONATE 8.4% 1 MEQ/ML 50ML SYR IV SCH (23:00)
[2021-06-18] VITALS (18 sets, daily range): BP systolic 51–191; BP diastolic 26–82
[2021-06-18] MEDS ORDERED: PIPERACILLIN/TAZOBACTAM 3.375 G in DEXTROSE 5% WATER 50 ML IV SCH
[2021-06-18] MEDS: EPINEPHRINE 10 MG in SODIUM CHLORIDE 0.9% 240 ML IV PRN ×3 (00:40→03:06)
[2021-06-18] MEDS ORDERED: SODIUM POLYSTYRENE SULFONATE 15 G/60 ML BOT PO SCH (00:45)
[2021-06-18] MEDS ORDERED: SODIUM BICARBONATE 8.4% 1 MEQ/ML 50ML SYR IV SCH (00:45)
[2021-06-18] MEDS: DOPAMINE 400MG/250ML PREMIX 250 ML IV PRN ×2 (00:45→03:29)
[2021-06-18] MEDS: SODIUM BICARBONATE 150 MEQ in DEXTROSE 5% WATER 1000 ML IV SCH (01:07)
[2021-06-18] MEDS ORDERED: VANCOMYCIN 1500MG in DEXTROSE 5% WATER 250ML IV NR (01:30)
[2021-06-18] MEDS: NOREPINEPHRINE 32 MG in DEXT 5% WATER 218 ML IV PRN (01:45)
[2021-06-18] MEDS: IPRATROPIUM/ALBUTEROL 0.5-3(2.5)MG/3ML NEB HHN SCH (01:48)
[2021-06-18] MEDS: PHENYLEPHRINE 100 MG in DEXT 5% WATER 240 ML IV PRN (03:05)
[2021-06-18] MEDS ORDERED: VANCOMYCIN 1 G PREMIX 200 ML IV SCH (23:30)
== END 2021-06-18 04:26 | DRG 811 ==
LOC: ER 09:52 → 5EST 13:13 → EDBEDREQSVC 13:30 → EDBEDREQ 13:30 → ENRESERV 17:58 → ER 19:18 → MICUSO 06-17 09:40
PROVIDERS: ADMIT Internal Medicine; ATTEND Internal Medicine
PROC: 30233K1 Transfusion of Nonautologous Frozen Plasma into Peripheral Vein, Percutaneous Approach (ICD-10-PCS; principal; 2021-05-28)
PROC: 30233N1 Transfusion of Nonautologous Red Blood Cells into Peripheral Vein, Percutaneous Approach (ICD-10-PCS; 2021-05-29)
PROC: 0DB78ZX Excision of Stomach, Pylorus, Via Natural or Artificial Opening Endoscopic, Diagnostic (ICD-10-PCS; 2021-06-02)
PROC: 0DJD8ZZ Inspection of Lower Intestinal Tract, Via Natural or Artificial Opening Endoscopic (ICD-10-PCS; 2021-06-03)
PROC: 0DH63UZ Insertion of Feeding Device into Stomach, Percutaneous Approach (ICD-10-PCS; 2021-06-14)
PROC: 0DB78ZX Excision of Stomach, Pylorus, Via Natural or Artificial Opening Endoscopic, Diagnostic (ICD-10-PCS; 2021-06-14)
PROC: 5A1935Z Respiratory Ventilation, Less than 24 Consecutive Hours (ICD-10-PCS; 2021-06-17)
PROC: 05HY33Z Insertion of Infusion Device into Upper Vein, Percutaneous Approach (ICD-10-PCS; 2021-06-17)
PROC: B54MZZA Ultrasonography of Right Upper Extremity Veins, Guidance (ICD-10-PCS; 2021-06-17)
PROC: 0BH17EZ Insertion of Endotracheal Airway into Trachea, Via Natural or Artificial Opening (ICD-10-PCS; 2021-06-17)
PROC: 5A12012 Performance of Cardiac Output, Single, Manual (ICD-10-PCS; 2021-06-18)
DX: D50.9 Iron deficiency anemia, unspecified (principal); J96.00 Acute respiratory failure, unspecified whether with hypoxia or hypercapnia; K57.91 Diverticulosis of intestine, part unspecified, without perforation or abscess with bleeding; K29.01 Acute gastritis with bleeding; K29.81 Duodenitis with bleeding; D68.9 Coagulation defect, unspecified; I50.30 Unspecified diastolic (congestive) heart failure; E46 Unspecified protein-calorie malnutrition; N17.9 Acute kidney failure, unspecified; E87.2 Acidosis; G93.40 Encephalopathy, unspecified; D62 Acute posthemorrhagic anemia; S20.212A Contusion of left front wall of thorax, initial encounter; D72.829 Elevated white blood cell count, unspecified; D75.839 Thrombocytosis, unspecified; G35 Multiple sclerosis; I25.10 Atherosclerotic heart disease of native coronary artery without angina pectoris; M60.9 Myositis, unspecified; I11.0 Hypertensive heart disease with heart failure; I44.1 Atrioventricular block, second degree; M70.71 Other bursitis of hip, right hip; M70.72 Other bursitis of hip, left hip; X58.XXXA Exposure to other specified factors, initial encounter; G62.9 Polyneuropathy, unspecified; E66.01 Morbid (severe) obesity due to excess calories; K80.20 Calculus of gallbladder without cholecystitis without obstruction; E87.5 Hyperkalemia; R57.8 Other shock; I46.9 Cardiac arrest, cause unspecified; D69.6 Thrombocytopenia, unspecified; K59.00 Constipation, unspecified; Z20.822 Contact with and (suspected) exposure to COVID-19; R13.10 Dysphagia, unspecified; Z79.01 Long term (current) use of anticoagulants; Z86.718 Personal history of other venous thrombosis and embolism; Z83.3 Family history of diabetes mellitus; Z82.49 Family history of ischemic heart disease and other diseases of the circulatory system; Z68.36 Body mass index [BMI] 36.0-36.9, adult; Y93.89 Activity, other specified; Y92.89 Other specified places as the place of occurrence of the external cause; Y99.8 Other external cause status; I08.1 Rheumatic disorders of both mitral and tricuspid valves; S30.0XXA Contusion of lower back and pelvis, initial encounter
CPT/HCPCS: 36415; 36600; 71045; 71260; 72195; 74176; 74177; 76700; 76770; 76937; 80048; 80053; 80061; 80305; 80320; 81003; 82085; 82150; 82164; 82375; 82550; 82553; 82607; 82728; 82746; 82784; 82805; 82962; 82977; 83010; 83036; 83520; 83540; 83550; 83605; 83615; 83880; 84132; 84145; 84439; 84443; 84484; 84550; 85014; 85018; 85025; 85027; 85044; 85049; 85240; 85362; 85379; 85384; 85613; 85651; 85732; 86038; 86147; 86160; 86225; 86235; 86256; 86334; 86431; 86592; 86850; 86880; 86900; 86920; 86927; 87426; 88305; 88312; 88313; 93005; 93306; 93970; 97162; 97530; 97535; 99291; C1725; C9113; J1100; J1265; J1650; J1815; J1940; J2250; J2270; J2370; J2405; J2543; J2704; J2765; J2920; J3010; J3370; J3490; J7040; J7050; J7060; J7070; P9016; P9017; Q9967; A4315; G0480